=== PATIENT | female | born 1995 | race African-American/Black ===

== ENCOUNTER 2016-07-24 20:47 | Emergency (ER) | payer OTHER ==
[~2016-07-24] VITALS: Ht 170.2 cm; Wt 96.0 kg
[2016-07-24 20:48] VITALS: BP 136/78; PULSE 83; RESP 16; TEMP 98; O2SAT 100
[2016-07-24] MEDS ORDERED: VENTAER INH (21:50)
[2016-07-24] MEDS ORDERED: DICL50TA3 PO (22:12)
[2016-07-24] MEDS ORDERED: CYCL1TAB29 PO (22:12)
[2016-07-24] MEDS ORDERED: CYCLOBENZAPRINE HCL 10 MG TAB PO ONE (22:15)
[2016-07-24] MEDS ORDERED: IBUPROFEN 800 MG TAB PO ONE (22:15)
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
== END 2016-07-24 22:35 | disposition home or self-care (01) ==
LOC: NEPB 20:47
DX: M54.2 Cervicalgia (principal); M54.9 Dorsalgia, unspecified; V43.92XA Unspecified car occupant injured in collision with other type car in traffic accident, initial encounter; Y92.410 Unspecified street and highway as the place of occurrence of the external cause
CPT/HCPCS: 99283